=== PATIENT | male | born 1955 | race Caucasian/White ===

== ENCOUNTER 2016-11-08 16:37 | Emergency (ER) | payer BC ==
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
[2016-11-08 17:54] VITALS: BP 109/57
[2016-11-08] MEDS ORDERED: Ketorolac 60 MG/2 ML SDV IM ONE (17:54)
== END 2016-11-08 19:03 | disposition home or self-care (01) ==
LOC: JP.ED 16:37
DX: S06.0X9A Concussion with loss of consciousness of unspecified duration, initial encounter (principal); S32.008A Other fracture of unspecified lumbar vertebra, initial encounter for closed fracture; S40.011A Contusion of right shoulder, initial encounter; S80.211A Abrasion, right knee, initial encounter; V29.9XXA Motorcycle rider (driver) (passenger) injured in unspecified traffic accident, initial encounter
CPT/HCPCS: 36415; 70450; 71250; 74176; 80048; 85025; 96372; 99284; J1885